=== PATIENT | male | born 1985 | race Caucasian/White ===

== ENCOUNTER 2021-10-24 13:55 | Outpatient (REF) | payer OTHER, SELFPAY ==
[2021-10-24 15:15] LABS: Anion Gap 13 (12-20); Blood Urea Nitrogen 12 mg/dL (9-16); Calcium 9.4 mg/dL (8.4-10.2); Carbon Dioxide 25 mmol/L (22-29); Chloride 104 mmol/L (96-108); Estimated Glomerular Filt Rate > 60; Glucose Random 90 mg/dL (60-115); Sodium 138 mmol/L (135-145)
[2021-10-24 15:34] LABS: Thyroid Stimulating Hormone 2.11 uIU/mL (0.32-4.0)
[2021-10-24 15:37] LABS: Erythrocyte Sedimentation Rate 2 MM/HR (0-15)
[2021-10-26 05:01] LABS: Lyme Abs Screen <0.90 index
[2021-10-26 13:47] LABS: Anti Nuclear Antibody Screen NEGATIVE (NEGATIVE)
== END 2021-10-24 13:56 | disposition home or self-care (01) ==
LOC: HO.LAB 13:55
PROVIDERS: PCP Internal Medicine; Visit Provider Psychiatry & Neurology Neurology
DX: R53.83 Other fatigue (principal)
CPT/HCPCS: 36415; 80048; 82550; 84443; 85652; 86038; 86039; 86617; 86618